=== PATIENT | male | born 1995 | race Caucasian/White ===

== ENCOUNTER 2017-03-02 13:06 | Emergency (ER) | payer OTHER ==
[2017-03-02] MEDS ORDERED: ACETAMINOPHEN 325 MG TABLET PO ONE (13:56)
--- NOTE | 2017-03-02 15:20 | ER Document Report ---
ED Flu Like - General Chief Complaint: Flu Symptoms Stated Complaint: FLU LIKE SYMPTOMS Mode of Arrival: Ambulatory Information source: Patient Notes: 21-year-old male presents to the emergency department complaining of sore throat , congestion, and fever over the last 2 days. Patient reports symptoms began with sore throat, generalized body aches, headache, and nasal congestion 2 days ago. Reports associated chills with unmeasured temperature. States roommate and girlfriend had similar symptoms over the last week which have resolved. Denies chest pain, vision changes, shortness of breath, nausea or vomiting. TRAVEL OUTSIDE OF THE [place] IN LAST 30 DAYS: No - HPI Timing/Duration: Persistent Quality of pain: Achy Severity: Mild Pain Level: 2 Similar symptoms previously: No Recently seen / treated by doctor: No Past Medical History - General Information source: Patient - Social History Smoking Status: Current Every Day Smoker Chew tobacco use (# tins/day): - 3 Frequency of alcohol use: None Drug Abuse: Marijuana Lives with: Family Family History: Reviewed & Not Pertinent - Medical History Medical History: Negative Renal/ Medical History: Denies: Hx Peritoneal Dialysis Surgical Hx: Negative - Immunizations Hx Diphtheria, Pertussis, Tetanus Vaccination: Yes Review of Systems - Review of Systems Constitutional: See HPI EENT: See HPI Cardiovascular: No symptoms reported Respiratory: No symptoms reported Gastrointestinal: No symptoms reported Genitourinary: No symptoms reported Male Genitourinary: No symptoms reported Musculoskeletal: See HPI Skin: No symptoms reported Hematologic/Lymphatic: No symptoms reported Neurological/Psychological: No symptoms reported -: Yes All other systems reviewed and negative Physical Exam - Vital signs Vitals: Temp Pulse Resp BP Pulse Ox 99.9 F 92 H 18 120/75 99 03/02/17 13:20 03/02/17 13:20 03/02/17 13:20 03/02/17 13:20 03/02/17 13:20 Interpretation: Normal - General General appearance: Appears well, Alert In distress: None - HEENT Head: Normocephalic, Atraumatic Eyes: Normal Conjunctiva: Normal Eyelashes: Normal Pupils: PERRL Ears: Normal External canal: Normal Tympanic membrane: Normal Sinus: Normal Nasal: Normal Mouth/Lips: Normal Mucous membranes: Normal, Moist Pharynx: Normal. No: Blood in hypopharynx, Erythema, Exudate, Peritonsillar abscess, Post nasal drainage, Retropharyngeal abscess, Tonsillar hypertrophy, Uvular edema, Potential airway comprom., Other Neck: Normal. No: Anterior cervical chain, Posterior cervical chain, Brudzinski , Kernig's, Lymphadenopathy, Meningismus, Subcutaneous emphysema - Respiratory Respiratory status: No respiratory distress Chest status: Nontender Breath sounds: Normal - CTAB Chest palpation: Normal - Cardiovascular Rhythm: Regular Heart sounds: Normal auscultation Murmur: No Pulses: Normal: Radial Normal capillary refill: Yes - Abdominal Inspection: Normal Distension: No distension Bowel sounds: Normal Tenderness: Nontender Organomegaly: No organomegaly - Back Back: Normal, Nontender. No: CVA tenderness - Extremities General upper extremity: Normal inspection, Nontender, Normal color, Normal ROM , Normal temperature General lower extremity: Normal inspection, Nontender, Normal color, Normal ROM , Normal temperature, Normal weight bearing - Neurological Neuro grossly intact: Yes Cognition: Normal Orientation: AAOx4 [place] Coma Scale Eye Opening: Spontaneous [place] Coma Scale Verbal: Oriented Yoel Coma Scale Motor: Obeys Commands [place] Coma Scale Total: 15 Speech: Normal Motor strength normal: LUE, RUE, LLE, RLE Sensory: Normal - Skin Skin Temperature: Warm Skin Moisture: Dry Skin Color: Normal Course - Re-evaluation Re-evalutation: 03/02/17 15:19 Patient hemodynamically stable, in no distress, afebrile, nontoxic, and appears well-hydrated. Patient tolerating oral fluids without difficulty or vomiting. Patient reports headache resolved after oral Tylenol, states feels much better and would like to go home. Rapid strep and Influenza screen negative. Will treat for likely viral illness. No meningeal signs or suggestion of emergent or significant infectious etiology at this time. Patient appears stable for discharge and agrees with puncture, follow-up with PCP, and ED return precautions. - Vital Signs Vital signs: Temp Pulse Resp BP Pulse Ox 98.7 F 70 20 118/74 98 03/02/17 15:53 03/02/17 15:53 03/02/17 15:53 03/02/17 15:53 03/02/17 15:53 Discharge - Discharge Clinical Impression: Nonspecific syndrome suggestive of viral illness Condition: Stable Disposition: HOME, SELF-CARE Instructions: Viral Syndrome ([facility]), Acetaminophen, Use of Ltpk-Rqx-Usnyian Ibuprofen ([facility]) Additional Instructions: Drink plenty of fluids. Follow-up with your primary care provider on Saturday. Return to the Emergency Department for any worsening symptoms or concerns. Forms: Return to Work [facility]errals: [facility] [NO [facility]AL MD] - Follow up tomorrow
[2017-03-02 15:55] VITALS: BP 118/74
== END 2017-03-02 15:56 | disposition home or self-care (01) ==
LOC: ER 13:06
DX: B34.9 Viral infection, unspecified (principal); J02.9 Acute pharyngitis, unspecified; R09.81 Nasal congestion; R50.9 Fever, unspecified; R52 Pain, unspecified; R51 Headache; F17.200 Nicotine dependence, unspecified, uncomplicated
CPT/HCPCS: 87070; 87804; 87880; 99283

== ENCOUNTER 2017-07-05 15:30 | Emergency (ER) | payer OTHER ==
[2017-07-05 15:48] VITALS: BP 151/84
--- NOTE | 2017-07-05 16:35 | ER Document Report ---
HPI - HPI Patient complains to provider of: pink eye Onset: Other - 2 days Onset/Duration: Persistent Quality of pain: Burning Pain Level: 5 Context: Patient presents complaining of redness to bilateral eyes for the past 2 days. Patient states that whenever he woke up today his eyes were matted shut. Patient denies any foreign body in his eye. Patient denies any glasses or contact lens use. Patient denies any change in vision. Associated Symptoms: Other - eye redness. denies: Earache, Fever Exacerbated by: Denies Relieved by: Denies Similar symptoms previously: Yes Recently seen / treated by doctor: No - ROS ROS below otherwise negative: Yes Systems Reviewed and Negative: Yes All other systems reviewed and negative - CONSTITUTIONAL Constitutional: DENIES: Fever, Chills - EENT EENT: REPORTS: Eye problems - NEURO Neurology: DENIES: Headache - GASTROINTESTINAL Gastrointestinal: DENIES: Nausea - MUSCULOSKELETAL Musculoskeletal: DENIES: Neck Pain - DERM Skin Color: Normal Skin Problems: None Past Medical History - General Information source: Patient - Social History Smoking Status: Current Every Day Smoker Frequency of alcohol use: None Drug Abuse: None Occupation: none Lives with: Spouse/Significant other Family History: Reviewed & Not Pertinent - Medical History Medical History: Negative Renal/ Medical History: Denies: Hx Peritoneal Dialysis Surgical Hx: Negative - Immunizations Hx Diphtheria, Pertussis, Tetanus Vaccination: Yes Vertical Provider Document - CONSTITUTIONAL Agree With Documented VS: Yes Exam Limitations: No Limitations General Appearance: WD/WN, No Apparent Distress - INFECTION CONTROL TRAVEL OUTSIDE OF THE [place] IN LAST 30 DAYS: No - HEENT HEENT: Atraumatic, Normocephalic Notes: Sclera injected to bilateral eyes, small amount of mucoid drainage to eyelashes. Extraocular movements intact, no corneal abrasion, foreign body, ulcer, or dendrite. No fluorescein uptake. - NECK Neck: Normal Inspection - RESPIRATORY Respiratory: No Respiratory Distress O2 Sat by Pulse Oximetry: 99 - MUSCULOSKELETAL/EXTREMETIES Musculoskeletal/Extremeties: MAEW - NEURO Level of Consciousness: Awake, Alert, Appropriate Motor/Sensory: No Motor Deficit - DERM Integumentary: Warm, Dry Course - Vital Signs Vital signs: Temp Pulse Resp BP Pulse Ox 98.3 F 82 16 151/84 H 99 07/05/17 15:46 07/05/17 15:46 08/18/17 15:46 07/05/17 15:46 07/05/17 15:46 Discharge - Discharge Clinical Impression: Elevated blood pressure reading Conjunctivitis Qualifiers: Conjunctivitis type: unspecified Laterality: bilateral Qualified Code(s): H10.9 - Unspecified conjunctivitis Condition: Stable Disposition: HOME, SELF-CARE Instructions: Antibiotic Therapy ([facility]), Conjunctivitis ([facility]) Additional Instructions: Return immediately for any new or worsening symptoms Followup with your primary care provider, call tomorrow to make a followup appointment Follow-up with store stock help for any continued pain or problems Prescriptions: Polymyxin B Sulfate/Tmp [Polytrim Oph Soln 10 ml] 1 drop BTH_EYE ASDIR #1 bottle Forms: Elevated Blood Pressure Referrals: FOSTER CAMP DO [ACTIVE STAFF] - Follow up as needed
== END 2017-07-05 17:00 | disposition home or self-care (01) ==
LOC: ER 15:30
DX: H10.9 Unspecified conjunctivitis (principal); F17.200 Nicotine dependence, unspecified, uncomplicated; R03.0 Elevated blood-pressure reading, without diagnosis of hypertension
CPT/HCPCS: 99283

== ENCOUNTER 2017-07-09 18:06 | Emergency (ER) | payer OTHER ==
[2017-07-09 18:27] VITALS: BP 126/80
[2017-07-09] MEDS ORDERED: BESIFLOXACIN HCL 0.6% OPH SUSP 5 ML BOTTLE OU ONE (19:07)
--- NOTE | 2017-07-09 19:08 | ER Document Report ---
ED Eye Complaint - General Chief Complaint: Drainage from Eye Stated Complaint: EYE IRRITATION Time Seen by Provider: 07/09/17 19:03 Mode of Arrival: Ambulatory Information source: Patient Notes: Pt is a 21 year old male who presents to the ER today for continued eye redness , light sensitivity after being on antibiotic eye drops, polysporin, for a week. He admits to clear drainage, states the right eye is worse than the left. Denies injury to the eyes or foreign body. He denies runny nose, cough, fever, chills, wearing contact lenses. TRAVEL OUTSIDE OF THE [place] IN LAST 30 DAYS: No - Related Data Allergies/Adverse Reactions: No Known Allergies Allergy (Unverified 07/05/17 15:46) Past Medical History - General Information source: Patient - Social History Smoking Status: Unknown if Ever Smoked Family History: Reviewed & Not Pertinent Patient has suicidal ideation: No Patient has homicidal ideation: No Renal/ Medical History: Denies: Hx Peritoneal Dialysis - Immunizations Hx Diphtheria, Pertussis, Tetanus Vaccination: Yes Review of Systems - Review of Systems Constitutional: No symptoms reported EENT: See HPI Cardiovascular: No symptoms reported Respiratory: No symptoms reported Gastrointestinal: No symptoms reported Genitourinary: No symptoms reported Male Genitourinary: No symptoms reported Musculoskeletal: No symptoms reported Skin: No symptoms reported Hematologic/Lymphatic: No symptoms reported Neurological/Psychological: No symptoms reported Physical Exam - Vital signs Vitals: Temp Pulse Resp BP Pulse Ox 98.4 F 69 16 126/80 H 99 07/09/17 18:25 07/09/17 18:25 07/09/17 18:25 07/09/17 18:25 07/09/17 18:25 - Notes Notes: PHYSICAL EXAMINATION: GENERAL: Well-appearing and in no acute distress. HEAD: Atraumatic, normocephalic. EYES: light sensitive, Pupils equal round and reactive to light, extraocular movements intact, sclera anicteric, conjunctiva erythematous, moreso in right than left, no foreign body noted ENT: ear canals without erythema or foreign body, TMs pearly clay with good bony landmarks, nares patent, oropharynx clear without exudates. Moist mucous membranes. NECK: Normal range of motion, supple without lymphadenopathy LUNGS: CTAB and equal. No wheezes rales or rhonchi. HEART: Regular rate and rhythm without murmurs EXTREMITIES: Normal range of motion, no pitting edema. No cyanosis. NEUROLOGICAL: Cranial nerves grossly intact. Normal sensory/motor exams. PSYCH: Normal mood, normal affect. SKIN: Warm, Dry, normal turgor, no rashes or lesions noted Course - Re-evaluation Re-evalutation: 07/10/17 07:45 pt was unable to tolerate eye exam due to light sensitivity and irriation, I changed his eye drops to besivance, he went home with a bottle from the ER and told him to call opthalmology, Dr. Camp first thing in the morning for an appointment. - Vital Signs Vital signs: Temp Pulse Resp BP Pulse Ox 98.4 F 69 16 126/80 H 99 07/09/17 18:25 07/09/17 18:25 07/09/17 18:25 07/09/17 18:25 07/09/17 18:25 Discharge - Discharge Clinical Impression: Conjunctivitis Qualifiers: Conjunctivitis type: acute Acute conjunctivitis type: unspecified Laterality: bilateral Qualified Code(s): H10.33 - Unspecified acute conjunctivitis, bilateral Condition: Stable Disposition: HOME, SELF-CARE Additional Instructions: Return with worsening symptoms, use eye drops 1 drop each eye three times a day for 7 days. Follow up with eye doctor below. Prescriptions: Ketorolac Tromethamine 5 ml OP QID #1 bottle Referrals: FOSTER CAMP DO [ACTIVE STAFF] - Follow up as needed
== END 2017-07-09 19:31 | disposition home or self-care (01) ==
LOC: ER 18:06
DX: H10.33 Unspecified acute conjunctivitis, bilateral (principal)
CPT/HCPCS: 99282

== ENCOUNTER 2017-09-12 12:29 | Emergency (ER) | payer OTHER ==
[2017-09-12 12:34] VITALS: BP 134/64
[2017-09-12] MEDS ORDERED: PROCHLORPERAZINE EDISYLATE INJ 10 MG/2 ML VIAL IV ONE (12:46)
[2017-09-12] MEDS ORDERED: ONDANSETRON HCL INJ/PF 4 MG/2 ML SDV IV ONE (12:46)
[2017-09-12] MEDS ORDERED: NORMAL SALINE 1000 ML 1,000 ML IV ONE (12:47)
--- NOTE | 2017-09-12 13:47 | ER Document Report ---
ED General - General Chief Complaint: Headache Stated Complaint: HEADACHE Time Seen by Provider: 09/12/17 12:38 TRAVEL OUTSIDE OF THE [place] IN LAST 30 DAYS: No - HPI Patient complains to provider of: Headache Notes: Patient coming in for a history of headache ongoing for the last 2 3 days. States headache in the back of her head and also in the front of his head. Denies any trauma states better with Motrin. Patient denies any fevers chills nausea vomiting diarrhea. Patient denies any history of migraines in the past denies taking any other medications for pain relief denies smoking drug abuse. Patient resting currently upon my evaluation. Denies any exacerbating factors only relieving factor is ibuprofen. - Related Data Allergies/Adverse Reactions: No Known Allergies Allergy (Verified 09/12/17 12:32) Past Medical History - Social History Smoking Status: Current Every Day Smoker Chew tobacco use (# tins/day): No Frequency of alcohol use: Occasional Drug Abuse: None Family History: Reviewed & Not Pertinent Renal/ Medical History: Denies: Hx Peritoneal Dialysis - Immunizations Hx Diphtheria, Pertussis, Tetanus Vaccination: Yes Review of Systems - Review of Systems Constitutional: No symptoms reported EENT: No symptoms reported Cardiovascular: No symptoms reported Respiratory: No symptoms reported Gastrointestinal: No symptoms reported Genitourinary: No symptoms reported Male Genitourinary: No symptoms reported Musculoskeletal: No symptoms reported Skin: No symptoms reported Hematologic/Lymphatic: No symptoms reported Neurological/Psychological: Headaches -: Yes All other systems reviewed and negative Physical Exam - Vital signs Vitals: Temp Pulse Resp BP Pulse Ox 98.0 F 87 16 134/64 H 99 09/12/17 12:33 09/12/17 12:33 09/12/17 12:33 09/12/17 12:33 09/12/17 12:33 Interpretation: Normal - General General appearance: Appears well, Alert - HEENT Head: Normocephalic, Atraumatic Eyes: Normal Pupils: PERRL - Respiratory Respiratory status: No respiratory distress Chest status: Nontender Breath sounds: Normal Chest palpation: Normal - Cardiovascular Rhythm: Regular Heart sounds: Normal auscultation Murmur: No - Abdominal Inspection: Normal Distension: No distension Bowel sounds: Normal Tenderness: Nontender Organomegaly: No organomegaly - Back Back: Normal, Nontender - Extremities General upper extremity: Normal inspection, Nontender, Normal color, Normal ROM , Normal temperature General lower extremity: Normal inspection, Nontender, Normal color, Normal ROM , Normal temperature, Normal weight bearing. No: Patience's sign - Neurological Neuro grossly intact: Yes Cognition: Normal Orientation: AAOx4 [place] Coma Scale Eye Opening: Spontaneous Yoel Coma Scale Verbal: Oriented [place] Coma Scale Motor: Obeys Commands [place] Coma Scale Total: 15 Speech: Normal Motor strength normal: LUE, RUE, LLE, RLE Sensory: Normal - Psychological Associated symptoms: Normal affect, Normal mood - Skin Skin Temperature: Warm Skin Moisture: Dry Skin Color: Normal Course - Re-evaluation Re-evalutation: 09/12/17 13:46 The patient presents with headache without signs of CTRS bleed, stroke, infection , or other serious etiology. The patient is neurologically intact. Given the extremely low risk of these diagnoses further testing and evaluation for these possibilities does not appear to be indicated at this time. Order patient migraine cocktail however was notified by nursing staff patient eloped prior to this being given. - Vital Signs Vital signs: Temp Pulse Resp BP Pulse Ox 98.0 F 87 16 134/64 H 99 09/12/17 12:33 09/12/17 12:33 09/12/17 12:33 09/12/17 12:33 09/12/17 12:33 Discharge - Discharge Clinical Impression: Headache Qualifiers: Headache type: unspecified Headache chronicity pattern: chronic headache Intractability: not intractable Qualified Code(s): R51 - Headache Condition: Good Disposition: ELOPED Instructions: Headache ([facility])
== END 2017-09-12 13:30 | disposition left against medical advice (07) ==
LOC: ER 12:29
DX: R51 Headache (principal)
CPT/HCPCS: 99281

== ENCOUNTER 2017-12-09 12:12 | Emergency (ER) | payer OTHER ==
[2017-12-09] MEDS ORDERED: LIDOCAINE 2% VISCOUS SOLN 20 ML UDCUP PO ONE (12:44)
--- NOTE | 2017-12-09 12:57 | ER Document Report ---
HPI - HPI Pain Level: 5 Notes: Patient is a 22-year-old male with no significant past medical history who presents to the ED complaining of dental pain to #181 day. Patient has not noticed any obvious abscess or discharge. He has not noticed any facial swelling. Patient states that he is still eating and drinking without any difficulties. He is urinating normally and having normal bowel movements. Patient states that he does have poor dentition and needs pulled. Patient requesting antibiotic. He denies any drug allergies. No other concerns or complaints at this time. Denies any headache, fever, head injury, neck pain, changes in vision/speech/mentation/hearing, URI, sore throat, chest pain, palpitations, syncope, cough, shortness of breath, wheeze, dyspnea, abdominal pain, nausea/vomiting/diarrhea, urinary retention, dysuria, hematuria, or rash. - ROS Notes: REVIEW OF SYSTEMS: CONSTITUTIONAL : Denies fever, chills, or sweats. Denies recent illness. EENT: see hpi CARDIOVASCULAR: Denies chest pain. Denies palpitations or racing or irregular heart beat. Denies ankle edema. RESPIRATORY: Denies cough, cold, or chest congestion. Denies shortness of breath, difficulty breathing, or wheezing. GASTROINTESTINAL: Denies abdominal pain or distention. Denies nausea, vomiting , or diarrhea. Denies blood in vomitus, stools, or per rectum. Denies black, tarry stools. Denies constipation. GENITOURINARY: Denies difficulty urinating, painful urination, burning, frequency, blood in urine, or discharge. MUSCULOSKELETAL: Denies back or neck pain or stiffness. Denies joint pain or swelling. SKIN: Denies rash, lesions or sores. NEUROLOGICAL: Denies confusion or altered mental status. Denies passing out or loss of consciousness. Denies dizziness or lightheadedness. Denies headache. Denies problems with gait or speech. Denies sensory loss, numbness, or tingling. Denies seizures. ALL OTHER SYSTEMS REVIEWED AND NEGATIVE. Dictation was performed using [employer] recognition software Past Medical History - Social History Smoking Status: Current Every Day Smoker Family History: Reviewed & Not Pertinent Renal/ Medical History: Denies: Hx Peritoneal Dialysis - Immunizations Hx Diphtheria, Pertussis, Tetanus Vaccination: Yes Vertical Provider Document - CONSTITUTIONAL Agree With Documented VS: Yes Notes: PHYSICAL EXAMINATION: GENERAL: Well-appearing, well-nourished and in no acute distress. HEAD: Atraumatic, normocephalic. EYES: Pupils equal round and reactive to light, extraocular movements intact, sclera anicteric, conjunctiva are normal. ENT: EAC clear b/l. TM's intact b/l without erythema, fluid, or perforation. Nares patent and without discharge. oropharynx clear without exudates. No tonsilar hypertrophy or erythema. Moist mucous membranes. No sinus tenderness. Uvula midline. No palatine shift. No tongue protrusion. No respiratory compromise. Mouth: Poor dentition. + moderate/severe decay and mild gingivitis. No obvious abscess or discharge noted. No facial swelling. + tenderness to tooth #18. NECK: Normal range of motion, supple without lymphadenopathy. No rigidity/ meningismus. LUNGS: Breath sounds clear to auscultation bilaterally and equal. No wheezes rales or rhonchi. HEART: Regular rate and rhythm without murmurs, rubs, gallops. NEUROLOGICAL: Cranial nerves grossly intact. Normal speech, normal gait. Normal sensory, motor exams PSYCH: Normal mood, normal affect. SKIN: Warm, Dry, normal turgor, no rashes or lesions noted. - INFECTION CONTROL TRAVEL OUTSIDE OF THE [place] IN LAST 30 DAYS: No Course - Re-evaluation Re-evalutation: 12/09/17 12:55 Patient is an afebrile, well-hydrated, 22-year-old male who presents the ED with toothache to #18, nerve root etiology versus infection. Vitals are stable. PE is otherwise unremarkable. Low suspicion for any meningitis, sepsis , peritonsillar/pharyngeal abscess, respiratory compromise, Miguel Angel's, temporal arteritis, or other emergent systemic condition at this time. Patient is aware this condition can change from initial presentation and he needs to monitor symptoms closely. I will send him home with a prescription for penicillin as well as viscous lidocaine ED dispense. Conservative measures otherwise for symptoms. Call to schedule an appointment with a dentist for further evaluation and management. Recheck with your PCM this week as well. Return to the ED with any worsening/concerning symptoms otherwise as reviewed in discharge. Patient is in agreement. Discharge - Discharge Clinical Impression: Toothache Condition: Stable Disposition: HOME, SELF-CARE Instructions: Penicillin V K ([facility]), Toothache ([facility]), Dentist Additional Instructions: [place] and floss twice daily Maintain fluid intake Take antibiotics as directed Mouthwash, salt water gargles, peroxide rinse as needed Tylenol/ibuprofen as needed Recheck with PCM this week Call today/tomorrow and schedule an appointment with your dentist for further evaluation Return to the ED with any worsening symptoms and/or development of fever, headache, facial swelling, swelling of lips/tongue/throat, trouble swallowing, drooling, hoarseness, neck pain/stiffness, chest pain, palpitations, syncope, shortness of breath, trouble breathing, abdominal pain, n/v/d, numbness/tingling , or other worsening symptoms that are concerning to you. Prescriptions: Penicillin V Potassium [Penicillin Vk 250 mg Tablet] 500 mg PO BID #40 tablet Forms: Smoking Cessation Education, Elevated Blood Pressure Referrals: [facility] [Provider Group] - Follow up as needed
== END 2017-12-09 13:11 | disposition home or self-care (01) ==
LOC: ER 12:12
DX: K02.9 Dental caries, unspecified (principal); K05.10 Chronic gingivitis, plaque induced; K08.89 Other specified disorders of teeth and supporting structures; F17.200 Nicotine dependence, unspecified, uncomplicated
CPT/HCPCS: 99282; J3490

== ENCOUNTER 2019-10-24 18:56 | Emergency (ER) | payer SELFPAY ==
[2019-10-24 19:20] VITALS: BP 126/83
[2019-10-24] MEDS ORDERED: ACETAMINOPHEN 325 MG TABLET PO ONE (19:45)
--- NOTE | 2019-10-24 19:48 | ER Document Report ---
ED Head/Face/Scalp Injury - General Chief Complaint: Head Injury Stated Complaint: FALL/HEAD INJURY Time Seen by Provider: 10/24/19 19:39 Mode of Arrival: Ambulatory Information source: Patient Notes: 23-year-old male presented to ED for pain in his head after he fell 20 feet off of a ladder landing on his face. He states he did blackout for an undetermined amount of time. He states that his boss told him that he was calling and calling and he was not answering. Patient is alert and oriented at this time but he is staggering when he walks. Pupils equal reactive light TRAVEL OUTSIDE OF THE [place] IN LAST 30 DAYS: No - HPI Patient complains to provider of: Contusion, Injury, Pain Injury to: Forehead Location of problem: Forehead Where: Work Timing: Still present Context: Fell Loss consciousness: Prolonged (minutes) - 2 to 3 minutes Remembers: Coming to hospital - Related Data Allergies/Adverse Reactions: No Known Allergies Allergy (Verified 12/09/17 12:14) Past Medical History - General Information source: Patient, Relative - Social History Smoking Status: Current Every Day Smoker - 1/3 pack/day Cigarette use (# per day): Yes Smoking Education Provided: Yes - Woman Frequency of alcohol use: None Drug Abuse: Marijuana Lives with: Family Family History: Reviewed & Not Pertinent Patient has suicidal ideation: No Patient has homicidal ideation: No - Past Medical History Cardiac Medical History: Reports: Hx Hypertension Pulmonary Medical History: Reports: None EENT Medical History: Reports: None Neurological Medical History: Reports: None Endocrine Medical History: Reports: None Renal/ Medical History: Reports: None Malignancy Medical History: Reports None GI Medical History: Reports: None Musculoskeletal Medical History: Reports Hx Musculoskeletal Deformity, Reports Hx Musculoskeletal Trauma Skin Medical History: Reports None Psychiatric Medical History: Reports: Hx Anxiety, Other - Tourette's Traumatic Medical History: Reports: Hx Fractures - Feet both ankles multiple toes multiple fingers Infectious Medical History: Reports: None Surgical Hx: Negative Past Surgical History: Reports: None - Immunizations Hx Diphtheria, Pertussis, Tetanus Vaccination: Yes Review of Systems - Review of Systems Constitutional: No symptoms reported EENT: No symptoms reported Cardiovascular: No symptoms reported Respiratory: No symptoms reported Gastrointestinal: No symptoms reported Genitourinary: No symptoms reported Male Genitourinary: No symptoms reported Musculoskeletal: No symptoms reported Skin: No symptoms reported Hematologic/Lymphatic: No symptoms reported Neurological/Psychological: Lost consciousness, Headaches, Other - Unsteady on his feet -: Yes All other systems reviewed and negative Physical Exam - Vital signs Vitals: Temp Pulse BP Pulse Ox 97.8 F 75 126/83 H 98 10/24/19 19:19 10/24/19 19:19 10/24/19 19:19 10/24/19 19:19 Interpretation: Normal - General General appearance: Appears well, Alert - HEENT Head: Abrasions - Abrasion to forehead, Tenderness Eyes: Normal Pupils: PERRL Visual kincaid normal: Yes Ears: Normal External canal: Normal Tympanic membrane: Normal Sinus: Normal Nasal: Normal Mouth/Lips: Normal Mucous membranes: Normal Pharynx: Normal Neck: Normal - Respiratory Respiratory status: No respiratory distress Chest status: Nontender Breath sounds: Normal Chest palpation: Normal - Cardiovascular Rhythm: Regular Heart sounds: Normal auscultation Murmur: No - Abdominal Inspection: Normal Distension: No distension Bowel sounds: Normal Tenderness: Nontender Organomegaly: No organomegaly - Back Back: Normal, Nontender - Extremities General upper extremity: Normal inspection, Normal color, Normal ROM, Normal temperature General lower extremity: Normal inspection, Nontender, Normal color, Normal ROM, Normal temperature, Normal weight bearing. No: Patience's sign Wrist: Tender. 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 Babinski reflex: Normal (flexor plantar) Sensory: Normal Biceps - Reflex grade: 2 = Normal Triceps - Reflex grade: 2 = Normal Brachioradialis - Reflex grade: 2 = Normal - Psychological Associated symptoms: Normal affect, Normal mood - Skin Skin Temperature: Warm Skin Moisture: Dry Skin Color: Normal Location of irregularity: Face - Abrasion to forehead Course - Vital Signs Vital signs: Temp Pulse Resp BP Pulse Ox 97.8 F 75 126/83 H 98 10/24/19 19:42 10/24/19 19:19 10/24/19 19:19 10/24/19 19:42 Discharge - Discharge Clinical Impression: Right wrist pain Fall Qualifiers: Encounter type: initial encounter Qualified Code(s): W19.XXXA - Unspecified fall, initial encounter Head injury Qualifiers: Encounter type: initial encounter Qualified Code(s): S09.90XA - Unspecified injury of head, initial encounter Condition: Stable Disposition: ELOPED
--- NOTE | 2019-10-24 20:39 | RADIOLOGY REPORT (SQ) ---
EXAM: XR WRIST 3 OR MORE VIEWS CLINICAL INDICATION: 23-year-old male status post fall with RIGHT wrist pain. TECHNIQUE: Three views RIGHT wrist were obtained in AP, lateral and oblique projections COMPARISON: None. FINDINGS: There is no fracture or dislocation. The joint spaces are preserved. No soft tissue abnormalities are seen. IMPRESSION: No acute radiographic abnormality.
--- NOTE | 2019-10-24 20:43 | RADIOLOGY REPORT (SQ) ---
EXAM: CT CERVICAL SPINE WITHOUT IV CONTRAST, CT HEAD WITHOUT IV CONTRAST CLINICAL INDICATION: 23-year-old male status post fall. COMPARISON: None. TECHNIQUE: CT brain without contrast. This exam was performed according to our departmental dose optimization program which includes use of automated exposure control, adjustment of the mA and/or kV according to patient size and/or use of iterative reconstruction technique. FINDINGS: The ventricles, sulci, and cisterns are symmetric and unremarkable. The chandra-white matter differentiation is preserved. There is no mass effect, midline shift, intra- or extra-axial fluid collection/acute hemorrhage. The osseous structures are unremarkable. The paranasal sinuses and mastoid air cells are clear. IMPRESSION: 1. No acute intracranial abnormalities. TECHNIQUE: Cervical spine CT was performed without contrast. Multiplanar reformatted images were provided. This exam was performed according to our departmental dose optimization program which includes use of automated exposure control, adjustment of the mA and/or kV according to patient size and/or use of iterative reconstruction technique. COMPARISON: None. FINDINGS: There is normal alignment of the cervical spine without fracture or subluxation. The facets are normal in alignment bilaterally. The posterior elements including the spinous processes are intact. Straightening of the cervical spine which may be secondary to positioning for the examination. Morphology and attenuation of the vertebral bodies and intervertebral disk spaces is within normal limits. The pre-and paravertebral soft tissues are within normal limits. IMPRESSION: 1. Straightening of the cervical spine which may be secondary to positioning for the examination versus spasm. 2. No fracture or acute subluxation.
== END 2019-10-24 21:06 | disposition left against medical advice (07) ==
LOC: ER 18:56
DX: S09.90XA Unspecified injury of head, initial encounter (principal); S00.83XA Contusion of other part of head, initial encounter; M25.531 Pain in right wrist; W11.XXXA Fall on and from ladder, initial encounter; F17.210 Nicotine dependence, cigarettes, uncomplicated; I10 Essential (primary) hypertension
CPT/HCPCS: 70450; 72125; 99281

== ENCOUNTER 2020-01-12 11:49 | Emergency (ER) | payer OTHER ==
[2020-01-12 12:07] VITALS: BP 144/70
--- NOTE | 2020-01-12 13:12 | ER Document Report ---
HPI - HPI Time Seen by Provider: 01/12/20 13:05 Context: Patient is a 24-year-old male presents emergency department with a chief complaint of a rash to bilateral hands, forearms, and left abdomen. Patient was working out in the yard and thinks that he got some poison erum exposure. Patient states that he has been itchy and has been trying not to scratch, but sometimes does. Patient also states that he feels the rash is on his lips. Denies any shortness of breath or difficulty breathing. Denies any difficulty swallowing. - CONSTITUTIONAL Constitutional: DENIES: Fever, Chills - RESPIRATORY Respiratory: DENIES: Trouble Breathing, Coughing - REPRODUCTIVE Reproductive: DENIES: : - DERM Skin Color: Normal Skin Problems: Rash Past Medical History - General Information source: Patient - Social History Smoking Status: Unknown if Ever Smoked Family History: Reviewed & Not Pertinent - Past Medical History Cardiac Medical History: Reports: Hx Hypertension Renal/ Medical History: Denies: Hx Peritoneal Dialysis Musculoskeletal Medical History: Reports Hx Musculoskeletal Deformity, Reports Hx Musculoskeletal Trauma Psychiatric Medical History: Reports: Hx Anxiety Traumatic Medical History: Reports: Hx Fractures - Feet both ankles multiple toes multiple fingers - Immunizations Hx Diphtheria, Pertussis, Tetanus Vaccination: Yes Vertical Provider Document - CONSTITUTIONAL Agree With Documented VS: Yes Exam Limitations: No Limitations General Appearance: No Apparent Distress - INFECTION CONTROL TRAVEL OUTSIDE OF THE [place] IN LAST 30 DAYS: No - HEENT HEENT: Atraumatic, Normocephalic, PERRLA - NECK Neck: Normal Inspection - RESPIRATORY Respiratory: Breath Sounds Normal, No Respiratory Distress - CARDIOVASCULAR Cardiovascular: Regular Rate, Regular Rhythm Pulses: Normal: Radial - GI/ABDOMEN Gastrointestinal: Abdomen Soft - MUSCULOSKELETAL/EXTREMETIES Musculoskeletal/Extremeties: FROM, Non-Tender - NEURO Level of Consciousness: Awake, Alert, Appropriate - DERM Integumentary: Rash - Bilateral hands, lower abdomen, and bilateral forearms; erythematous and blanchable Course - Re-evaluation Re-evalutation: 01/12/20 13:16 Patient will be treated with steroids for possible poison erum exposure. AMI Gastelum at bedside during exam. No actual rash on the genital area, but on the lower abdominal area. Instructed the patient to take Benadryl also. He is in agreement with this plan. Lung sounds are clear. I have very low suspicion for any life-threatening etiology at this time. Follow-up precautions were given. Verbal discharge instructions were given to the patient. They verbalized understanding. They are stable for discharge. - Vital Signs Vital signs: Temp Pulse Resp BP Pulse Ox 98 F 57 L 16 144/70 H 100 01/12/20 12:06 01/12/20 12:06 01/12/20 12:06 01/12/20 12:06 01/12/20 12:06 Discharge - Discharge Clinical Impression: Rash Condition: Stable Disposition: HOME, SELF-CARE Additional Instructions: You are seen today in the emergency department for possible poison erum exposure. You are being started on steroids. Please take your steroids as prescribed. Follow-up with a primary care provider regards to this visit. Please also take Benadryl 25 to 50 mg every 4-6 hours for your itchiness. Prescriptions: Prednisone [Deltasone 20 mg Tablet] 20 tab PO ASDIR 5 Days tablet Forms: Return to Work
== END 2020-01-12 13:20 | disposition home or self-care (01) ==
LOC: ER 11:49
DX: R21 Rash and other nonspecific skin eruption (principal); I10 Essential (primary) hypertension
CPT/HCPCS: 99282

== ENCOUNTER 2020-07-16 12:38 | Emergency (ER) | payer SELFPAY ==
[2020-07-16 12:54] VITALS: BP 127/72
[2020-07-16] MEDS ORDERED: DIPH/PERTUSS(ACELL)/TETANUS VAC/PF 0.5 ML SYR (>=10YO) IM ONE (13:02)
[2020-07-16] MEDS ORDERED: NAPROXEN 250 MG TABLET PO ONE (13:02)
--- NOTE | 2020-07-16 13:06 | ER Document Report ---
HPI - HPI Time Seen by Provider: 07/16/20 12:59 Pain Level: 5 Notes: CHIEF COMPLAINT: Left index finger laceration HPI: 24-year-old male presenting for left index finger laceration was cutting something with a knife and cut off the tip of the finger. Patient states he is not up-to-date on his tetanus vaccination. Denies other injuries or complaints ROS: See HPI - all other systems were reviewed and are otherwise negative Constitutional: no fever Integumentary: no rash, positive laceration Allergy: no hives Musculoskeletal: + extremity pain or swelling Neurological: no numbness/tingling MEDICATIONS: I agree with the patient medications as charted by the RN. ALLERGIES: I agree with the allergies as charted by the RN. PAST MEDICAL HISTORY/PAST SURGICAL HISTORY: Reviewed and agree as charted by RN. SOCIAL HISTORY: Reviewed and agree as charted by RN. FAMILY HISTORY: No significant familial comorbid conditions directly related to patient complaint EXAM: Reviewed vital signs as charted by RN. CONSTITUTIONAL: Alert and oriented and responds appropriately to questions. Well-appearing; well-nourished HEAD: Normocephalic; atraumatic EYES: Conjunctivae clear, sclerae non-icteric ENT: normal nose; no rhinorrhea; moist mucous membranes NECK: Supple without meningismus CARD: RRR; no murmurs, no clicks, no rubs, no gallops; symmetric distal pulses RESP: Normal chest excursion without splinting or tachypnea ABD/GI: non-distended. BACK: The back appears normal EXT: Normal ROM in all joints; no cyanosis, no effusions, no edema. There is avulsion of the superficial tissue from the tip of the left index finger. No visible bone exposure. No nail involvement. Avulsion measures approximately 1 cm diameter. Full flexion extension at the DIP joint space region of the left index finger. SKIN: Normal color for age and race; warm; dry; good turgor NEURO: Moves all extremities equally; Motor and sensory function intact PSYCH: The patient's mood and manner are appropriate. Grooming and personal hygiene are appropriate. MDM: 24-year-old male with an avulsion type injury to the tip of the index finger. No indication for closure. Will place a hemostatic dressing on this he will leave in place for 24 hours then may change it daily. - REPRODUCTIVE Reproductive: DENIES: : - MUSCULOSKELETAL Musculoskeletal: REPORTS: Extremity pain Past Medical History - Social History Smoking Status: Former Smoker Frequency of alcohol use: None Drug Abuse: None Family History: Reviewed & Not Pertinent - Past Medical History Cardiac Medical History: Reports: Hx Hypertension Renal/ Medical History: Denies: Hx Peritoneal Dialysis Musculoskeletal Medical History: Reports Hx Musculoskeletal Deformity, Reports Hx Musculoskeletal Trauma Psychiatric Medical History: Reports: Hx Anxiety Traumatic Medical History: Reports: Hx Fractures - Feet both ankles multiple toes multiple fingers - Immunizations Hx Diphtheria, Pertussis, Tetanus Vaccination: Yes Vertical Provider Document - INFECTION CONTROL TRAVEL OUTSIDE OF THE [place] IN LAST 30 DAYS: No Course - Vital Signs Vital signs: Temp Pulse Resp BP Pulse Ox 98.2 F 80 18 127/72 H 98 07/16/20 12:53 07/16/20 12:53 07/16/20 12:53 07/16/20 12:53 07/16/20 12:53 Discharge - Discharge Clinical Impression: Laceration of finger, left Qualifiers: Encounter type: initial encounter Finger: index finger Damage to nail status: without damage Foreign body presence: without foreign body Qualified Code(s): S61.211A - Laceration without foreign body of left index finger without damage to nail, initial encounter Condition: Stable Disposition: HOME, SELF-CARE Additional Instructions: Leave the dressing on for 24 hours then you may change the dressing cleaning the area gently with soap and water until healed. Pain medication as prescribed no driving or working with heavy equipment or at heights if taking narcotics for pain Prescriptions: Hydrocodone/Acetaminophen [[place] 5-325 mg Tablet] 1 tab PO Q4 PRN #15 tablet PRN Reason: Diclofenac Sodium [Voltaren 50 Mg Tablet.] 50 mg PO BID #20 tablet. Referrals: PAOLA MUELLER MD [ACTIVE STAFF] - Follow up as needed
== END 2020-07-16 13:35 | disposition home or self-care (01) ==
LOC: ER 12:38
DX: S61.211A Laceration without foreign body of left index finger without damage to nail, initial encounter (principal); W26.0XXA Contact with knife, initial encounter; Y93.89 Activity, other specified; Z23 Encounter for immunization; I10 Essential (primary) hypertension; Z87.891 Personal history of nicotine dependence
CPT/HCPCS: 90471; 90715; 99284

== ENCOUNTER 2020-09-02 15:12 | Emergency (ER) | payer OTHER ==
[2020-09-02] MEDS ORDERED: NORMAL SALINE 1000 ML 1,000 ML IV ONE (15:29)
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
[2020-09-02] MEDS ORDERED: ACETAMINOPHEN 325 MG TABLET PO ONE (15:35)
[2020-09-02 16:05] LABS: ABSOLUTE EOSINOPHILS # (AUTO) 0.1 10^3/uL (0.0-0.6); ABSOLUTE LYMPHOCYTES (AUTO) 1.9 10^3/uL (0.5-4.7); ABSOLUTE MONOCYTES (AUTO) 0.5 10^3/uL (0.1-1.4); ABSOLUTE NEUT (AUTO) 4.5 10^3/uL (1.7-8.2); BASOPHILS % (AUTO) 0.4 % (0-2); HEMATOCRIT 45.5 % (37.9-51.0); HEMOGLOBIN 15.8 g/dL (13.5-17.0); LYMPHOCYTES % (AUTO) 27.9 % (13-45); MEAN CORPUSCULAR HEMOGLOBIN 30.6 pg (27.0-33.4); MEAN CORPUSCULAR HGB CONC 34.8 g/dL (32.0-36.0); MEAN CORPUSCULAR VOLUME 88 fl (80-97); MONOCYTES % (AUTO) 6.5 % (3-13); PLATELET COUNT 238 10^3/uL (150-450); RED BLOOD COUNT 5.18 10^6/uL (4.35-5.55); RED CELL DISTRIBUTION WIDTH 13.5 % (11.5-14.0); SEGMENTED NEUTROPHILS % (AUTO) 64.2 % (42-78); TOTAL CELLS COUNTED % (AUTO) 100 %; WHITE BLOOD COUNT 6.9 10^3/uL (4.0-10.5)
[2020-09-02 16:32] LABS: ALBUMIN 4.7 g/dL (3.5-5.0); ALKALINE PHOSPHATASE 99 U/L (38-126); ANION GAP 11 (5-19); ASPARTATE AMINO TRANSFERASE 44 U/L (17-59); BILIRUBIN,DIRECT 0.3 mg/dL (0.0-0.4); BILIRUBIN,TOTAL 0.7 mg/dL (0.2-1.3); BLOOD UREA NITROGEN 15 mg/dL (7-20); CALCIUM 9.4 mg/dL (8.4-10.2); CARBON DIOXIDE 24 mmol/L (22-30); CHLORIDE 102 mmol/L (98-107); GLUCOSE 108 mg/dL (75-110); POTASSIUM 3.8 mmol/L (3.6-5.0); TOTAL PROTEIN 7.6 g/dL (6.3-8.2)
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
[2020-09-02 18:48] LABS: APPEARANCE,URINE CLEAR; BILIRUBIN,URINE NEGATIVE (NEGATIVE); COLOR,URINE STRAW; GLUCOSE, URINE NEGATIVE (NEGATIVE); KETONES,URINE NEGATIVE (NEGATIVE); LEUKOCYTE ESTERASE,URINE NEGATIVE (NEGATIVE); NITRITE,URINE NEGATIVE (NEGATIVE); PROTEIN,URINE NEGATIVE (NEGATIVE); UROBILINOGEN,URINE NEGATIVE mg/dL (<2.0)
[2020-09-02 19:24] VITALS: BP 118/82
== END 2020-09-02 19:24 | disposition home or self-care (01) ==
LOC: ER 15:12
DX: M25.532 Pain in left wrist (principal); M79.632 Pain in left forearm; R51.9 Headache, unspecified; R42 Dizziness and giddiness; R10.9 Unspecified abdominal pain; V87.7XXA Person injured in collision between other specified motor vehicles (traffic), initial encounter; F17.200 Nicotine dependence, unspecified, uncomplicated; I10 Essential (primary) hypertension
CPT/HCPCS: 99285; 96360; 96361; 36415; 85025; 80053; 81001; 73130; 73110; 70450; 71260; 72125; 74177; J7030